=== PATIENT | female | born 1965 | race Caucasian/White ===

== ENCOUNTER 2018-08-15 18:13 | Emergency (ER) | payer SELFPAY ==
--- NOTE | 2018-08-15 19:04 | EDM.PDOC ---
ED HPI GENERAL MEDICAL PROBLEM - General Chief Complaint: Upper Extremity Injury/Pain Stated Complaint: right arm pain Time Seen by Provider: 08/15/18 18:29 Source of Information: Reports: Patient History Limitations: Reports: No Limitations - History of Present Illness INITIAL COMMENTS - FREE TEXT/NARRATIVE: Patient presents to the ER after falling in [employer]. She states she has severe right arm pain, worse with movement. No LOC, no head injury, no chest pain, no SOB, no abdominal pain or open wounds. Numbness and tingling to mid humerus to hand. Onset: Today, Sudden Duration: Intermittent Location: Reports: Upper Extremity, Right Quality: Reports: Ache Severity: Moderate Worsens with: Reports: Movement Associated Symptoms: Reports: No Other Symptoms Right Arm Pain Score (Numeric/FACES): 10 - Related Data Allergies Allergy/AdvReac Type Severity Reaction Status Date / Time acetaminophen Allergy Nausea and Verified 08/15/18 18:56 [From Tylenol-Codeine] Vomiting codeine Allergy Nausea and Verified 08/15/18 18:56 [From Tylenol-Codeine] Vomiting morphine Allergy Difficulty Verified 08/15/18 18:56 Breathing Home Meds: Home Meds . [No Known Home Meds] 08/15/18 [History] Past Medical History HEENT History: Cardiovascular History: Reports: None Respiratory History: Reports: None Gastrointestinal History: Reports: Chronic Constipation, GERD, Other (See Below) Other Gastrointestinal History: tubular adenoma of colon Genitourinary History: Reports: None Musculoskeletal History: Reports: Back Pain, Chronic, Other (See Below) Other Musculoskeletal History: plantar fascial fibromatosis, medial epicondylitis Neurological History: Reports: None Psychiatric History: Reports: None Endocrine/Metabolic History: Reports: Obesity/BMI 30+, Vitamin D Deficiency, Other (See Below) Other Endocrine/Metabolic History: decreased thyroid activity Hematologic History: Reports: None Immunologic History: Reports: None Oncologic (Cancer) History: Reports: None Dermatologic History: Reports: Other (See Below) Other Dermatologic History: hidradentis - Past Surgical History HEENT Surgical History: Reports: Tonsillectomy, Other (See Below) Female Surgical History: Reports: Tubal Ligation Musculoskeletal Surgical History: Reports: Other (See Below) Review of Systems - Review of Systems Review Of Systems: See Below Constitutional: Reports: No Symptoms Eyes: Reports: No Symptoms Ears: Reports: No Symptoms Nose: Reports: No Symptoms Mouth/Throat: Reports: No Symptoms Respiratory: Reports: No Symptoms Cardiovascular: Reports: No Symptoms GI/Abdominal: Reports: No Symptoms Genitourinary: Reports: No Symptoms Musculoskeletal: Reports: Arm Pain Skin: Reports: No Symptoms Neurological: Reports: No Symptoms Psychiatric: Reports: No Symptoms ED EXAM, GENERAL - Physical Exam Exam: See Below Exam Limited By: No Limitations General Appearance: Alert, WD/WN, No Apparent Distress Nose: Normal Inspection, Normal Mucosa, No Blood Throat/Mouth: Normal Inspection, Normal Lips, Normal Teeth, Normal Gums, Normal Oropharynx, Normal Voice, No Airway Compromise Head: Atraumatic, Normocephalic Neck: Normal Inspection, Supple, Non-Tender, Full Range of Motion Respiratory/Chest: No Respiratory Distress, Lungs Clear, Normal Breath Sounds, No Accessory Muscle Use, Chest Non-Tender Cardiovascular: Normal Peripheral Pulses, Regular Rate, Rhythm, No Edema, No Gallop, No JVD, No Murmur, No Rub Peripheral Pulses: 2+: Radial (L), Radial (R) GI/Abdominal: Normal Bowel Sounds, Soft, Non-Tender, No Organomegaly, No Distention, No Abnormal Bruit, No Mass Extremities: Normal Inspection, Normal Capillary Refill, Limited Range of Motion (right arm has increased pain with external and internal rotation) Neurological: Alert, Oriented, CN II-XII Intact, Normal Cognition, Normal Gait, Normal Reflexes, No Motor/Sensory Deficits Psychiatric: Normal Affect, Normal Mood Skin Exam: Warm, Dry, Intact, Normal Color, No Rash Lymphatic: No Adenopathy Course - Vital Signs Last Recorded V/S: Last Vital Signs Temp 37.2 C 08/15/18 18:20 Pulse 83 08/15/18 18:20 Resp 16 08/15/18 18:20 BP 153/93 H 08/15/18 18:20 Pulse Ox 98 08/15/18 18:20 - Orders/Labs/Meds Meds: Medications Discontinued Medications Generic Name Dose Route Start Last Admin Trade Name Freq PRN Reason Stop Dose Admin Ketorolac Tromethamine 30 mg 08/15/18 18:55 08/15/18 19:12 Toradol IM 08/15/18 18:56 30 mg ONETIME ONE Administration Departure - Departure Time of Disposition: 19:49 Disposition: Home, Self-Care 01 Condition: Good Clinical Impression: Right upper limb pain - Discharge Information *PRESCRIPTION DRUG MONITORING PROGRAM REVIEWED*: No *COPY OF PRESCRIPTION DRUG MONITORING REPORT IN PATIENT JUAN DIEGO: No Instructions: Heat Therapy, [id number], Cryotherapy, [id number] Forms: ED Department Discharge Additional Instructions: Plan 1. Rest your arm as needed. No fractures were identified this evening. 2. Use elevation, ice, and ibuprofen for pain and swelling. 3. If your arm pain does not improve, follow up at the clinic to determine whether an MRI is needed to look for any muscle, tendons, or ligament tears. 4. Please call if you have any further questions or concerns. - Problem List & Annotations (1) Right upper limb pain SNOMED Code(s): 534581901 Code(s): M79.601 - PAIN IN RIGHT ARM Status: Acute Priority: Low Current Visit: Yes - Problem List Review Problem List Initiated/Reviewed/Updated: Yes - Assessment/Plan Assessment:: right arm pain Plan: Plan 1. Rest your arm as needed. No fractures were identified this evening. Utilize the immobilizer. 2. Use elevation, ice, and ibuprofen for pain and swelling. 3. If your arm pain does not improve, follow up at the clinic to determine whether an MRI is needed to look for any muscle, tendons, or ligament tears. 4. Please call if you have any further questions or concerns.
[2018-08-15 19:08] VITALS: BP 153/93
[2018-08-15] MEDS: Ketorolac 30 MG/ML SDV IM ONE (19:12)
--- NOTE | 2018-08-15 19:37 | CR ---
[id number] RAD/RAD Humerus Right 2V EXAM: RAD Humerus Right 2V CLINICAL DATA: TRAUMA COMPARISON: NO PREVIOUS SIMILAR EXAM IS AVAILABLE. FINDINGS: No fracture or dislocation is seen. There is no radiopaque foreign body in the soft tissues. There is no air in the soft tissues. There is no cortical thickening or periosteal reaction either. IMPRESSION: NEGATIVE PLAIN FILM EXAM. Aquiels Mcbride MD 08/15/18 1935 Thank you for allowing us to participate in the care of your patient.
--- NOTE | 2018-08-15 19:37 | CR ---
[id number] RAD/RAD Shoulder Right 2V Min EXAM: RAD Shoulder Right 2V Min CLINICAL DATA: TRAUMA COMPARISON: NO PREVIOUS SIMILAR EXAM IS AVAILABLE. FINDINGS: No fracture or dislocation is seen. There is no radiopaque foreign body in the soft tissues. There is no air in the soft tissues. There is no cortical thickening or periosteal reaction either. IMPRESSION: NEGATIVE PLAIN FILM EXAM. Aquiles Mcbride MD 08/15/18 1936 Thank you for allowing us to participate in the care of your patient.
== END 2018-08-15 20:00 | disposition home or self-care (01) ==
LOC: VM.ED 18:13
DX: M79.601 Pain in right arm (principal); E66.9 Obesity, unspecified; Z88.8 Allergy status to other drugs, medicaments and biological substances; Z88.5 Allergy status to narcotic agent
CPT/HCPCS: 73030; 73060; 96372; 99283; J1885

== ENCOUNTER 2021-05-06 08:39 | Day surgery (SDC) | payer BC ==
[~2021-05-06 08:39] MED LIST: Lactated Ringers 1,000 ML IV SCH
[2021-05-06] MEDS ORDERED: Propofol 200 MG/20 ML SDV ONE ×2 (09:55→11:11)
[2021-05-06] MEDS ORDERED: fentaNYL 100 MCG/2 ML SDV ONE (09:55)
[2021-05-06 12:03] VITALS: BP 123/73; PULSE 73
[2021-05-06] MEDS ORDERED: Nalbuphine 10 MG/1 ML Vial IVPUSH PRN (12:40)
--- NOTE | 2021-05-07 08:21 | OR ---
DATE OF SURGERY: 05/06/2021 REFERRING PROVIDER: Laquita Odonnell MD PRE-OPERATIVE DIAGNOSES: History of colon polyps. Last colonoscopy was in 2013 at [facility]. There is no family history of colon cancer. POST-OPERATIVE DIAGNOSES: 1. Two small polyps removed using cold forceps. a. A. 3 mm at 65 cm. b. B. 3 mm at 60 cm. 2. Lipoma-like smooth mass at 70 cm. Cold biopsy x2 bites taken, but no worrisome features noted with this. 3. Moderately tortuous colon. PROCEDURE: Colonoscopy with polypectomy x2 using cold forceps and cold biopsy x1 site. SURGEON: Seamus Pereira M.D. ANESTHESIA: Monitored anesthesia care. BOWEL PREP: GoodLawson Fraser is a 56-year-old female who was brought to the endoscopy suite after discussing risks and benefits of the procedure. Informed consent was obtained for conscious sedation and colonoscopy with or without biopsy and/or polypectomy. We also discussed possibility of missed lesions. Pre-procedure exam was unremarkable. IV, oxygen, and monitors were placed. The patient was placed in the left lateral decubitus position. Sedation was administered and a digital rectal exam was performed which was unremarkable. Colonoscope was passed into the rectum and slowly advanced all the way to the cecum. Cecum was viewed and photographed. The colonoscope was slowly withdrawn and the mucosa was closed observed in a direct circumferential manner. The ascending colon was unremarkable. The transverse colon revealed lipoma-like smooth mass, probably about 2 cm in size at 70 cm from the anal verge. Cold biopsy x2 bites taken of this. No worrisome features were appreciated and it was soft and collapsible. Within the transverse colon, there were also 3 mm polyps at 65 cm and 60 cm, both removed using cold forceps. The descending colon was unremarkable. The sigmoid colon was unremarkable. Retroflexion was performed and rectal mucosa was unremarkable. The patient did have a moderately tortuous colon. Scope was removed. The patient tolerated the procedure well. The patient was monitored until that baseline status. Discharge instructions were reviewed and the patient was discharged in good condition. COMPLICATIONS: None. TOTAL TIME: 31 minutes. ESTIMATED BLOOD LOSS: About 1 mL. RECOMMENDATIONS/FOLLOW-UP: Will await results of path report to determine ideal followup interval. I would like to kindly thank Dr. Odonnell for this referral. DMB: 05/06/2021 13:05:10 MODL: 05/06/2021 19:40:31 /[id number]
== END 2021-05-06 13:22 | disposition home or self-care (01) ==
LOC: VM.SDS 08:39
PROVIDERS: ATTEND Family Medicine
DX: Z12.11 Encounter for screening for malignant neoplasm of colon (principal); D12.3 Benign neoplasm of transverse colon; E66.9 Obesity, unspecified; K21.9 Gastro-esophageal reflux disease without esophagitis; G89.29 Other chronic pain; M54.9 Dorsalgia, unspecified; Z98.890 Other specified postprocedural states; Z79.899 Other long term (current) drug therapy; Z79.82 Long term (current) use of aspirin; Z87.891 Personal history of nicotine dependence; Z68.35 Body mass index [BMI] 35.0-35.9, adult
CPT/HCPCS: 00811; J2300; J2704; J3010; J7120

== ENCOUNTER 2022-06-10 06:25 | Day surgery (SDC) | payer BC ==
[2022-06-10] MEDS ORDERED: Lactated Ringers 1,000 ML IV SCH (07:00)
[2022-06-10] MEDS ORDERED: fentaNYL 100 MCG/2 ML SDV ONE (07:24)
[2022-06-10] MEDS ORDERED: Propofol 200 MG/20 ML SDV ONE (07:24)
[2022-06-10 08:36] VITALS: BP 132/71; PULSE 72
[2022-07-08] MEDS ORDERED: Lactated Ringers 1,000 ML IV SCH (07:00)
== END 2022-06-10 10:08 | disposition home or self-care (01) ==
LOC: VM.SDS 06:25
PROVIDERS: ATTEND Student in an Organized Health Care Education/Training Program
DX: K29.70 Gastritis, unspecified, without bleeding (principal); K22.2 Esophageal obstruction; E66.9 Obesity, unspecified; K21.9 Gastro-esophageal reflux disease without esophagitis; E55.9 Vitamin D deficiency, unspecified; E03.9 Hypothyroidism, unspecified; Z98.890 Other specified postprocedural states; Z79.899 Other long term (current) drug therapy; Z88.6 Allergy status to analgesic agent; Z79.890 Hormone replacement therapy; Z87.891 Personal history of nicotine dependence; Z68.33 Body mass index [BMI] 33.0-33.9, adult
CPT/HCPCS: 00731; J2704; J3010; J7120